=== PATIENT | female | born 2000 | race Caucasian/White ===

== ENCOUNTER 2024-12-05 19:04 | Emergency (ER) | payer OTHER ==
[~2024-12-05] VITALS: Ht 160 cm; Wt 59.8 kg
[2024-12-05] MEDS ORDERED: PRED20TA PO (20:53)
[2024-12-05] MEDS ORDERED: METH-1165 PO (20:53)
[2024-12-05] MEDS: predniSONE 20 MG TAB PO ONE (20:55)
[2024-12-05 20:56] VITALS: BP 120/80; TEMP 98.1; O2SAT 100
== END 2024-12-05 21:04 | disposition home or self-care (01) ==
LOC: M ED 19:04
DX: S39.012A Strain of muscle, fascia and tendon of lower back, initial encounter (principal); Y92.9 Unspecified place or not applicable; Y93.9 Activity, unspecified; Y99.9 Unspecified external cause status; Z88.6 Allergy status to analgesic agent; Z79.52 Long term (current) use of systemic steroids; Z79.899 Other long term (current) drug therapy
CPT/HCPCS: 99283; J7512

== ENCOUNTER 2024-12-31 20:26 | Inpatient (IN) | payer OTHER ==
[~2024-12-31] VITALS: Ht 160 cm; Wt 54.5 kg
[~2024-12-31 20:26] MED LIST: METH-1165 PO; PRED20TA PO
[2024-12-31 22:38] LABS: PLATELET COUNT, AUTOMATED 224 10^3/uL (150-450)
[2024-12-31 23:01] LABS: AMPHETAMINES LEVEL URINE NEGATIVE (NEGATIVE); BARBITURATES URINE NEGATIVE (NEGATIVE); BENZODIAZEPINES URINE NEGATIVE (NEGATIVE); COCAINE METABOLITE URINE NEGATIVE (NEGATIVE); METHADONE URINE NEGATIVE (NEGATIVE); OPIATES URINE NEGATIVE (NEGATIVE); PHENCYCLIDINE URINE NEGATIVE (NEGATIVE)
[2024-12-31 23:02] LABS: CANNABINOIDS URINE NEGATIVE (NEGATIVE)
[2024-12-31 23:29] LABS: ETHYL ALCOHOL (ETHANOL) < 0.003 % (0.000-0.010)
[2024-12-31 23:30] LABS: SALICYLATE LEVEL < 3.0 MG/DL (<30)
[2024-12-31 23:31] LABS: ALT/SGPT 14 U/L (7.0-40); AST/SGOT 12 U/L (<34); CALCIUM LEVEL 9.4 MG/DL (8.5-10.1); CARBON DIOXIDE LEVEL 25 MMOL/L (20-31); CHLORIDE LEVEL 108 MMOL/L (98-107); CREATININE FOR GFR 0.68 MG/DL (0.55-1.30); GLOMERULAR FILTRATION RATE > 90.0 (>60); POTASSIUM SERUM 4.2 MMOL/L (3.5-5.1); SODIUM LEVEL 144 MMOL/L (136-145)
[2024-12-31 23:45] LABS: URINE PREG TEST NEGATIVE (NEGATIVE)
[2024-12-31] MEDS ORDERED: ISOVUE-370 76% 100 ML VIAL As Ordered ONE (23:49)
[2025-01-01] MEDS: NS (Normal Saline) 0.9% 1,000 ML IV ONE (00:06)
[2025-01-01] MEDS ORDERED: traZODone 50 MG TAB PO PRN (03:35)
[2025-01-01] MEDS ORDERED: MAALOX 30 ML SUSP *UDC PO PRN (03:35)
[2025-01-01] MEDS ORDERED: MOM 30 ML SUSPENSION UDC PO PRN (03:35)
[2025-01-01 03:58] VITALS: BP 104/69; TEMP 97.2; O2SAT 100
[2025-01-01 06:20] VITALS: BP 141/91; TEMP 98; O2SAT 98
[2025-01-01] MEDS ORDERED: HOME MED LIST COMPLETE! XX SCH (08:05)
[2025-01-01] MEDS: SERTRALINE HCL 50 MG TAB PO SCH (12:25)
[2025-01-01 15:09] VITALS: BP 117/71; TEMP 97.9; O2SAT 99
[2025-01-01] MEDS: ACETAMINOPHEN 325 MG TAB PO PRN (16:33)
[2025-01-02 06:24] VITALS: BP 106/71; TEMP 98.3; O2SAT 100
[2025-01-02] MEDS: VITAMIN D 50,000 UNITS CAPSULE (ERGOCALCIFEROL 1.25MG) PO SCH (08:14)
[2025-01-02] MEDS ORDERED: ERGO500029 PO (08:41)
[2025-01-02] MEDS ORDERED: SERT50TA29 PO (08:41)
== END 2025-01-02 09:58 | disposition home or self-care (01) | DRG 881 ==
LOC: M ED 20:26 → M ED INP 01-01 03:33 → M PSY 01-01 04:15
PROVIDERS: ADMIT Psychiatry & Neurology Neurology; ATTEND Psychiatry & Neurology Psychiatry
DX: F32.A Depression, unspecified (principal); R45.851 Suicidal ideations; Z63.5 Disruption of family by separation and divorce; R51.9 Headache, unspecified; Z62.810 Personal history of physical and sexual abuse in childhood; Z62.811 Personal history of psychological abuse in childhood; Z88.6 Allergy status to analgesic agent; E55.9 Vitamin D deficiency, unspecified; F43.20 Adjustment disorder, unspecified; Z60.8 Other problems related to social environment

== ENCOUNTER → 2025-02-06 | Outpatient (CLI) | payer OTHER ==
[~2025-02-06] MED LIST changes: +ERGO500029 PO; +PROHANCE 279.3MG/ML 5ML VIAL As Ordered ONE; +SERT50TA29 PO
== END ==
LOC: M RAD 08:14
PROVIDERS: ATTEND General Practice
DX: R93.89 Abnormal findings on diagnostic imaging of other specified body structures (principal)
CPT/HCPCS: 70553; A9579